=== PATIENT | female | born 1990 | race Caucasian/White ===

== ENCOUNTER 2018-05-26 10:14 | Inpatient (IN) | payer OTHER ==
[~2018-05-26] VITALS: Ht 152.4 cm; Wt 70.3 kg
--- NOTE | ~2018-05-26 | PROC ---
[address] [address] PROCEDURE REPORT Name: SHEA RANDOLPH Room: [address] IN .R.#: [id number] Admission: 05/26/18 Attend Phys: Dean Valerio Discharge: 05/28/18 Date of : 86 Report #: [id number] THIS REPORT FOR: //name// For GI report, please see the Provation report in Perceptive 7 content. By: [id number] Records Staff PATTIE /CRISTINO
[2018-05-26 10:24] VITALS: BP 131/77
[2018-05-26 10:51] LABS: URINE BILIRUBIN NEGATIVE (Negative); URINE BLOOD 1+ (Negative); URINE CLARITY CLEAR; URINE COLOR YELLOW; URINE GLUCOSE-RANDOM NEGATIVE (Negative); URINE KETONES NEGATIVE (Negative); URINE LEUKOCYTES-REFLEX 1+ (Negative); URINE PROTEIN NEGATIVE (Negative); URINE SPECIFIC GRAVITY <= 1.005 (1.005-1.030); URINE UROBILINOGEN 0.2 E.U./dl (0.2-1.0)
[2018-05-26 10:51] LABS: ABSOLUTE EOSINOPHILS 0.1 thou/uL (0.0-0.7); ABSOLUTE MONOCYTES 0.6 thou/uL (0.0-1.2); ABSOLUTE NEUTROPHILS 7.4 thou/uL (1.6-8.1); BASOPHILS 0.5 %; EOSINOPHILS 0.8 %; HEMATOCRIT 27.6 % (37.0-47.0); HEMOGLOBIN 8.6 gm/dL (12.0-15.0); LYMPHOCYTES 11.4 %; MCH 21.1 pg (26.0-34.0); MCHC 31.3 g/dL (28.0-37.0); MCV 67.3 fL (80.0-100.0); MPV 7.2 fl. (7.2-11.1); NUCLEATED RBCS 0 /100WBC; PLATELET COUNT* 506 thou/uL (150-400); POLYS 81.3 %; RDW-CV 16.2 % (10.5-14.5); WBC 9.1 thou/uL (4.0-11.0)
[2018-05-26 10:54] LABS: URINE NITRITE-REFLEX POSITIVE (Negative)
[2018-05-26 10:59] LABS: CALCIUM 8.6 mg/dL (8.5-10.1); CREATININE 1.4 mg/dL (0.6-1.3); POTASSIUM 3.8 mmol/L (3.5-5.1)
[2018-05-26 11:01] LABS: SQUAMOUS 0-3 Few /LPF (0-3); URINE WBC-REFLEX 6-15 Few /HPF (0-5)
[2018-05-26 11:02] LABS: BACTERIA-REFLEX >30 Many /HPF (None Seen); CASTS None Seen /LPF (None Seen); CRYSTALS None Seen /LPF (None Seen); URINE RBC None Seen /HPF (0-2)
[2018-05-26 11:03] LABS: ALBUMIN 3.4 g/dL (3.4-5.0); TOTAL BILIRUBIN 0.3 mg/dL (<0.1-1.0); TOTAL PROTEIN 7.6 g/dL (6.4-8.2)
[2018-05-26 11:44] LABS: PLATELET ESTIMATE INCREASED
[2018-05-26 11:45] LABS: HYPOCHROMASIA 1+; MICROCYTES 2+
[2018-05-26 15:10] VITALS: BP 109/68
[2018-05-26 16:40] VITALS: BP 92/50
--- NOTE | 2018-05-26 17:56 | NUR ---
PATEINT ARRIVED TO THE UNIT FROM THE ED AT 1535. ALERT AND ORIENTED X4. ADMISSION ASSESSMENT AND HISTORY COMPLETED. NO COMPLAINTS OF PAIN, NAUSEA, OR SOA THROUGHOUT SHIFT. FLUIDS AND ANTIBIOTICS INFUSED ORDERED. PATIENT WILL BE NPO AT MIDNIGHT AND IS AWAITING CONSULTS WITH SURGERY AND GI IN THE AM. RESTING COMFORTABLY IN BED AT THIS TIME. HOURLY ROUNDS MAINTAINED, CALL LIGHT WITHIN REACH, NURSING WILL CONTINUE TO MONITOR.
[2018-05-26 21:00] VITALS: BP 100/60
[2018-05-27 05:06] LABS: ABSOLUTE BASOPHILS 0.1 thou/uL (0.0-0.2); ABSOLUTE EOSINOPHILS 0.1 thou/uL (0.0-0.7); ABSOLUTE LYMPHOCYTES 1.4 thou/uL (0.8-5.3); ABSOLUTE MONOCYTES 0.5 thou/uL (0.0-1.2); ABSOLUTE NEUTROPHILS 5.1 thou/uL (1.6-8.1); EOSINOPHILS 1.8 %; HEMATOCRIT 24.2 % (37.0-47.0); HEMOGLOBIN 7.7 gm/dL (12.0-15.0); LYMPHOCYTES 19.5 %; MCH 21.3 pg (26.0-34.0); MCHC 31.7 g/dL (28.0-37.0); MCV 67.2 fL (80.0-100.0); MONOCYTES 6.8 %; MPV 7.5 fl. (7.2-11.1); NUCLEATED RBCS 0 /100WBC; POLYS 70.9 %; RDW-CV 16.3 % (10.5-14.5); WBC 7.3 thou/uL (4.0-11.0)
[2018-05-27 05:30] LABS: ALBUMIN 2.7 g/dL (3.4-5.0); CALCIUM 8.1 mg/dL (8.5-10.1); CREATININE 1.6 mg/dL (0.6-1.3); POTASSIUM 4.4 mmol/L (3.5-5.1); TOTAL BILIRUBIN 0.2 mg/dL (<0.1-1.0); TOTAL PROTEIN 5.8 g/dL (6.4-8.2)
[2018-05-27 05:40] LABS: PLATELET COUNT* 407 thou/uL (150-400)
--- NOTE | 2018-05-27 07:33 | NUR ---
PATIENT ALERT AND ORIENTED X 4. VITALS STABLE. RA. VOMITED X 1 AND HAD A LOOSE STOOL AFTER EATING. ZOFRAN GICEN X 1. FLUIDS INFUSING PER ORDER. NPO. UP INDEPENDENTLY. HOURLY ROUNDS. NURSING WILL CONTINUE TO MONITOR.
[2018-05-27 07:47] LABS: PLATELET ESTIMATE INCREASED
[2018-05-27 07:50] LABS: ANISOCYTOSIS 2+; HYPOCHROMASIA 1+; MICROCYTES 2+; OVALOCYTES 1+; POIKILOCYTOSIS 1+
[2018-05-27 08:51] VITALS: BP 95/62
[2018-05-27 15:36] VITALS: BP 104/68
--- NOTE | 2018-05-27 18:50 | NUR ---
ASSUMED CARE OF PATIENT AFTER MORNING REPORT AT APPROX 0730. ALERT AND ORIENTED X4. ASSESSMENT COMPLETED AND CHARTED. VSS ON ROOM AIR. NO COMPLAINTS OF PAIN, NAUSEA, OR SOA THIS SHIFT. FLUIDS AND ANTIBIOTICS INFUSED ORDERED. PATIENT TO HAVE COLONOSCOPY AND EGD TOMORROW, PREP STARTED THIS AFTERNOON. HOURLY ROUNDS MAINTAINED, CALL LIGHT WITHIN REACH, NURSING WILL CONTINUE TO MONITOR.
[2018-05-27 20:00] VITALS: BP 111/62
[2018-05-28 05:17] LABS: ABSOLUTE BASOPHILS 0.1 thou/uL (0.0-0.2); ABSOLUTE EOSINOPHILS 0.1 thou/uL (0.0-0.7); ABSOLUTE LYMPHOCYTES 1.4 thou/uL (0.8-5.3); ABSOLUTE MONOCYTES 0.4 thou/uL (0.0-1.2); ABSOLUTE NEUTROPHILS 5.2 thou/uL (1.6-8.1); BASOPHILS 0.8 %; HEMOGLOBIN 7.6 gm/dL (12.0-15.0); LYMPHOCYTES 20.1 %; MCH 21.3 pg (26.0-34.0); MCHC 31.5 g/dL (28.0-37.0); MCV 67.6 fL (80.0-100.0); MONOCYTES 5.3 %; MPV 7.3 fl. (7.2-11.1); NUCLEATED RBCS 0 /100WBC; PLATELET COUNT* 376 thou/uL (150-400); POLYS 71.8 %; RBC 3.56 mil/uL (4.20-5.00); RDW-CV 16.1 % (10.5-14.5); WBC 7.2 thou/uL (4.0-11.0)
--- NOTE | 2018-05-28 05:51 | NUR ---
ASSUMED PATIENT CARE AT 1915. PATIENT ALERT AND ORIENTED TIMES FOUR. ALTERATION INSPECTOR COMPLETED DOCUMENTED. PATIENT DRINKING BOWEL PREP AT THIS TIME. IV PATENT TO FLUIDS INFUSING. QUESTIONS VERBALIZED TO THE LENGTH OF PROCEDURES FOR TOMORROW. AL QUESTIONS ANSWERED. NO COMPLAINTS OF PAIN THROUGH THIS SHIFT. MINOR COMPLAINTS OF NAUSEA, CONTROLLED WITH MEDICATIONS
[2018-05-28 06:11] LABS: PREALBUMIN 11.7 mg/dL (18.0-35.7)
[2018-05-28 06:12] LABS: CALCIUM 8.3 mg/dL (8.5-10.1); CREATININE 1.4 mg/dL (0.6-1.3)
[2018-05-28 07:04] LABS: HYPOCHROMASIA 2+
[2018-05-28 07:05] LABS: MICROCYTES 3+; OVALOCYTES 1+; PLATELET ESTIMATE ADEQUATE
[2018-05-28 07:51] VITALS: BP 111/62; BP 96/63
[2018-05-28 09:54] VITALS: BP 103/53
--- NOTE | 2018-05-28 11:11 | NUR ---
PT.SITTING ON SIDE OF BED, TALKING WITH MOM AND BOYFRIEND. SHE WAS SMILING. SAID SHE JUST WANTS TO GET THESE TESTS OVER WITH (EGD AND COLONSCOPY) AND GO HOME. SHE LIVES WITH HER S.O. AND IS INDEPENDENT. WORKS OUTSIDE THE HOME. USES NO DME. NO DISCHARGE NEEDS ANTICIPATED.
[2018-05-28 15:35] VITALS: BP 103/69
[2018-05-28 16:05] VITALS: BP 103/69
--- NOTE | 2018-05-28 17:41 | NUR ---
ASSUMED CARE OF PATIENT AFTER MORNING REPORT AT APPROX 0730. ALERT AND ORIENTED X4. ASSESSMENT COMPLETED ASND CHARTED. VSS ON ROOM AIR. NO COMPLAINTS OF PAIN, NAUSEA, OR SOA. PATIENT LEFT UNIT AT PRRPX 1230 FOR AN EGD AND COLONOSCOPY AND RETURNED AT 1345. PATIENT CLEARED TO DISCHARGE AND FOLOW UP OUTPATIENT WITH GI AND SURGERY, LEFT THE UNTIT AT 1715 WITH ALL PERSONAL BELONGINGS AND DIACHARGE INFORMATION.
[2018-05-28 23:07] LABS: HEPATITIS B SURFACE AG Negative (Negative)
[2018-05-29 02:06] LABS: HIV-1/HIV-2 ANTIBODY Non Reactive (Non Reactive)
--- NOTE | 2018-06-07 11:22 | CON ---
[address] [address] CONSULTATION Name: SHEA RANDOLPH Room: [address] IN .R.#: [id number] Admission: 05/26/18 Attend Phys: Dean Valerio Discharge: 05/28/18 Date of : 86 Report #: [id number] THIS REPORT FOR: //name// CC: Balta Bhatt HISTORY OF PRESENT ILLNESS: This is a pleasant 27-year-old female with no significant past medical history who is presenting for evaluation of abdominal pain. The patient reports the abdominal pain was present for about a week, but resolved overnight. The patient reported the pain was located in the right upper quadrant associated with food, present immediately after eating and bore no specific relationship to bowel movements. She denies any diarrhea, fevers, chills, weight loss. She had a CT scan as a part of this routine evaluation and was found to have perforation and was directed by her primary care provider to present to the ER. The patient denies any significant symptoms at this time and as a matter of fact reports that her abdominal pain has completely resolved. PAST MEDICAL HISTORY: As mentioned above, the patient has no significant past medical history. PAST SURGICAL HISTORY: No surgeries prior. FAMILY HISTORY: No family history of colon cancer or IBD. SOCIAL HISTORY: The patient denies smoking, alcohol or recreational drug use. REVIEW OF SYSTEMS: A comprehensive 10-point review of systems is completely negative except for what is mentioned in the HPI. PHYSICAL EXAMINATION: VITAL SIGNS: Temperature 36.7, pulse rate 81, respirations 16, blood pressure 95/62. GENERAL: The patient is alert, awake, oriented x 3. HEENT: Pupils are equal, round, reactive to light and accommodation. Oral mucous membranes are moist. There is no congestion. NECK: Supple. There is no supraclavicular lymphadenopathy. LUNGS: Clear to auscultation bilaterally. CARDIOVASCULAR: Rate and rhythm regular, S1, S2. ABDOMEN: Soft. There is no distention, no guarding, no tenderness or rigidity. Bowel sounds are present. EXTREMITIES: Warm, well perfused. There is no edema. NEUROLOGIC: No focal neurological deficit. SKIN: Warm and dry. LABORATORY DATA: Hemoglobin 7.7, hematocrit 24.2, WBC count 7.3, and platelet count 407. Sodium 141, potassium 4.4, chloride 107, BUN 10, creatinine 1.6, total bilirubin 0.2, AST 8, ALT 8, alkaline phosphatase 62, [place] 92. [place] [address] CONSULTATION Name: SHEA RANDOLPH Room: [address]#: [id number] Admission: 05/26/18 Attend Phys: Dean Valerio Discharge: 05/28/18 Date of : 86 Report #: [id number] IMAGING: Shows thickening in the terminal ileum and some small air bubbles noted suggestive of microperforation. ASSESSMENT AND PLAN: This is a pleasant 27-year-old female who presents with abdominal pain of 1-week duration and was found to have thickening of the bowel on CT scan suggestive of inflammatory bowel disease. The patient does have microperforation, but there are no overt signs of peritonitis. She also has acute kidney injury. We will proceed with EGD and colonoscopy tomorrow for evaluation of inflammatory bowel disease. The patient can take clear liquid diet today and has to be n.p.o. past midnight. Further recommendations will be based on the above testing. The patient also appears to have microcytic anemia. I will get iron indices, vitamin D levels and other labs for evaluation of inflammatory bowel disease. <ELECTRONICALLY SIGNED> By: Ab Gandhi MD 06/07/18 1122 [id number] [id number] Gandhi MD /nt
--- NOTE | 2018-06-08 15:06 | PATH ---
[address] [address] PATHOLOGY RPT PROCEDURE Name: SHEA STOVALL Room: [address] IN M.R.#: [id number] Admission: 05/26/18 Date of : 86 Discharge: 05/28/18 Report #: [id number] Path Case #: [id number] [facility] Accession Number: [id number] . 01 Material submitted: . PART A: DUODENAL BIOPSY PART B: CECAL ULCER BIOPSY . 01 Clinical history: . A. Rule out Celiac B. Rule out Crohn's . 02 Diagnosis: A. Duodenal biopsy: - Normal duodenal mucosa. . B. Cecal ulcer biopsy: - Severe chronic active colitis with ulceration, compatible with Crohn's disease, negative for granulomas, viral inclusions and dysplasia. See comment. . (WALLACE:naya; 05/31/2018) CHELSEA/05/31/2018 . 02 Comment: The biopsies reveal benign colonic mucosa with evidence of chronic inflammation including a prominent lymphoplasmacytic infiltrate in the lamina propria noted to be throughout the mucosal thickness and including the basal location, as well as scattered crypt distortion and easily identified cryptitis, crypt abscesses, and ulceration. Ischemic features are not apparent. In the appropriate clinical setting, the histologic features are compatible with Crohn's disease. . (WALLACE:naya; 05/31/2018) . 02 Electronically signed: . John Gonzalez MD, Pathologist NPI- [id number] . 01 Gross description: . A. Received in formalin labeled "Shea Stovall, duodenal biopsy," is a single segment of glover soft tissue measuring 0.5 cm in maximum dimension. The specimen is entirely submitted in cassette A1. . B. Received in formalin labeled "Shea Stovall, cecal ulcer biopsy," are 4 segments of glover soft tissue measuring 1.3 x 0.7 x 0.2 cm in aggregate dimensions and ranging from 0.3 to 0.5 cm in maximum dimension. The specimen is submitted entirely in cassette [place] [address] PATHOLOGY RPT PROCEDURE Name: SHEA STOVALL Room: [address] IN M.R.#: [id number] Admission: 05/26/18 Date of : 86 Discharge: 05/28/18 Report #: [id number] Path Case #: [id number] (TSD; 05/28/2018) TOB/TOB . 02 Pathologist provided ICD-10: K52.9, K50.10 . 02 CPT . 515513, 985722 Specimen Comment: A courtesy copy of this report has been sent to Specimen Comment: [phone], , . Specimen Comment: Report sent to , DR GREGORY / DR BREWER Specimen Comment: A duplicate report has been generated due to demographic updates. Performed at: [address], [place], [place] [id number] MD Juan José De Anda MD Phone: [phone] Performed at: 02 [facility] [address], [place], [place] [id number] MD John Gonzalez MD Phone: [phone]
== END 2018-05-28 17:15 | disposition home or self-care (01) | DRG 385 ==
LOC: M.ERS 10:14 → M.ORTHSURG 13:09 → M.TBA-ER 13:09 → M.ORTHSURG 15:05
PROVIDERS: Internal Medicine Gastroenterology; Nurse Practitioner Family; ADMIT Internal Medicine
PROC: 0DBH8ZX Excision of Cecum, Via Natural or Artificial Opening Endoscopic, Diagnostic (ICD-10-PCS; principal; 2018-05-28)
PROC: 0DB98ZX Excision of Duodenum, Via Natural or Artificial Opening Endoscopic, Diagnostic (ICD-10-PCS; principal; 2018-05-28)
DX: K50.80 Crohn's disease of both small and large intestine without complications (principal); K63.1 Perforation of intestine (nontraumatic); N39.0 Urinary tract infection, site not specified; N17.9 Acute kidney failure, unspecified; K56.7 Ileus, unspecified; D50.9 Iron deficiency anemia, unspecified; Z91.013 Allergy to seafood; Z82.49 Family history of ischemic heart disease and other diseases of the circulatory system; Z83.3 Family history of diabetes mellitus; Z28.21 Immunization not carried out because of patient refusal